=== PATIENT | male | born 1960 | race Caucasian/White ===

== ENCOUNTER 2018-03-28 13:39 | Emergency (ER) | payer BC, SELFPAY ==
[2018-03-28 13:40] VITALS: BP 154/88; PULSE 125; RESP 16; TEMP 37.8; O2SAT 93; BMI 29.7
--- NOTE | 2018-03-28 14:07 | EKG12_ITS ---
Test Reason : CP Blood Pressure : / mmHG Vent. Rate : 119 BPM Atrial Rate : 119 BPM P-R Int : 146 ms QRS Dur : 080 ms QT Int : 302 ms P-R-T Axes : 035 -12 012 degrees QTc Int : 424 ms Sinus tachycardia Inferior infarct , age undetermined Abnormal ECG Confirmed by MARISSA BRISCOE, HAYDER ([id number]), scientific publications editor AZIZA OGLESBY ([id number]) on 04/03/2018 9:13:06 AM Referred By: YARIEL Confirmed By:HAYDER ANN MD
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
[2018-03-28] MEDS: 0.9% Normal Saline 1,000 ML 999 ML IV (14:21)
[2018-03-28 14:41] LABS: International Normalized Ratio 1.1
[2018-03-28 14:45] LABS: Absolute Lymphocyte Count 1.07 X10^3/ul (0.83-4.51); Absolute Neutrophil Count 14.8 X10^3/uL (2.0-7.7); Basophil# 0.01 X10^3/uL; Basophil% 0.1 % (0-1); Hematocrit 40.6 % (40-54); Hemoglobin 14.7 g/dl (13.0-16.5); Lymphocyte # 1.07 X10^3/ul (4.0); Lymphocyte % 6.4 % (19-41); Mean Corp Hgb Conc 36.2 g/gl (32-36); Mean Corpuscular Hgb 31.4 pg (27.0-32.0); Mean Corpuscular Volume 86.8 fL (80-94); Mean Platelet Vol. 10.4 fl (6.2-12.0); Monocyte# 0.85 X10^3/uL; Monocyte% 5.1 % (0-10); Neutrophil # 14.77 X10^3/uL (2.7-7.7); Neutrophil % 87.9 % (47-70); POSITIVE COUNT NO; POSITIVE DIFFERENTIAL NO; POSITIVE MORPHOLOGY NO; Platelet Count 178 K/mm3 (150-450); RBC Distribution Width CV 12.1 % (11.6-14.6); RBC Distribution Width SD 38.4 fl (35.1-43.9); Red Blood Count 4.68 M/mm3 (4.6-6.2); White Blood Count 16.8 K/mm3 (4.4-11.0)
[2018-03-28 14:48] LABS: ALB/GLOB Ratio 0.6 RATIO (0.9-2.4); AST(SGOT) 236 U/L (15-37); Alanine Aminotransfer ALT/SGPT 119 U/L (16-61); Albumin, Serum 2.8 g/dL (3.2-5.0); Alkaline Phosphatase 61 U/L (45-117); Anion Gap 12 (5-15); BUN 20 mg/dL (7-18); BUN/Creat Ratio 15.5 RATIO (10-20); Calcium,Total 8.9 mg/dL (8.5-10.1); Chloride 88 mmol/L (98-107); Creatinine, Serum 1.29 mg/dL (0.70-1.30); EST Glomerular Filtration Rate 61 mL/min (>60); Est Glom Filt Rate - Afr Amer 74 mL/min (>60); Estimated Creatinine Clearance 70.18 ml/min; Globulin 4.5 g/dL (2.2-4.2); Glucose 130 mg/dL (74-106); Potassium 3.3 mmol/L (3.5-5.1); Protein, Total 7.3 g/dL (6.4-8.2); Sodium Level 124 mmol/L (136-145)
[2018-03-28 16:01] VITALS: BP 153/86; PULSE 110; RESP 18; O2SAT 91; O2SAT 94
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
[2018-03-28 16:57] VITALS: PULSE 115; RESP 24; O2SAT 94
--- NOTE | 2018-03-28 16:58 | ED.RN ---
ok to give info to Elvira, friend if she calls in.
== END 2018-03-28 16:59 | disposition short-term general hospital (02) ==
PROVIDERS: Emergency Provider Emergency Medicine
DX: S27.329A Contusion of lung, unspecified, initial encounter (principal); R09.02 Hypoxemia; S51.012A Laceration without foreign body of left elbow, initial encounter; V58.0XXA Driver of pick-up truck or van injured in noncollision transport accident in nontraffic accident, initial encounter; Y93.I9 Activity, other involving external motion; Y92.410 Unspecified street and highway as the place of occurrence of the external cause; Y99.8 Other external cause status
CPT/HCPCS: 70450; 71260; 72125; 74177; 80053; 85025; 85610; 93005; 96360; 99285; J7030; Q9967; A4216